=== PATIENT | male | born 1970 | race Caucasian/White ===

== ENCOUNTER 2019-04-09 09:38 | Emergency (ER) | payer OTHER | END 2019-04-09 11:34 | disposition home or self-care (01) | LOC: JERFT 09:38 ==

== ENCOUNTER 2021-06-26 14:10 | Emergency (ER) | payer OTHER ==
[2021-06-26] MEDS ORDERED: NAPROXEN 500 MG TABLET PO ONE (14:47)
[2021-06-26] MEDS ORDERED: NAPROXEN 500 MG TABLET ONE (15:25)
[2021-06-26 15:43] VITALS: BP 130/86; PULSE 58; TEMP 97.9; BMI 29.8
== END 2021-06-26 16:09 | disposition home or self-care (01) ==
LOC: FER 14:10
DX: M25.551 Pain in right hip (principal); M25.561 Pain in right knee; M25.571 Pain in right ankle and joints of right foot
CPT/HCPCS: 73523-TC-FY; 73562-TC-RT-FY; 73610-TC-RT-FY; 73630-TC-RT-FY; 99284-25

== ENCOUNTER 2022-09-26 11:46 | Emergency (ER) | payer OTHER ==
[2022-09-26 11:55] VITALS: BP 137/87; PULSE 55; RESP 18; TEMP 98.6; BMI 29.5
[2022-09-26] MEDS ORDERED: KETOROLAC TROMETHAMINE 30 MG/1 ML VIAL IM ONE (12:38)
[2022-09-26] MEDS ORDERED: LIDOCAINE 5% TOPICAL PATCH TP ONE ×2 (12:40→12:41)
[2022-09-26] MEDS ORDERED: ACETAMINOPHEN 500 MG TABLET (FP) PO ONE (12:40)
[2022-09-26] MEDS ORDERED: ACETAMINOPHEN 500 MG TABLET (FP) ONE (12:47)
[2022-09-26] MEDS ORDERED: KETOROLAC TROMETHAMINE 30 MG/1 ML VIAL ONE (12:47)
[2022-09-26] MEDS ORDERED: LIDOCAINE 5% TOPICAL PATCH ONE (12:48)
[2022-09-26] MEDS ORDERED: LIDOCAINE PATCH REMOVAL MC SCH ×2 (22:00)
== END 2022-09-26 14:30 | disposition home or self-care (01) ==
LOC: FER 11:46
PROC: 3E0233Z Introduction of Anti-inflammatory into Muscle, Percutaneous Approach (ICD-10-PCS; principal; 2022-09-26)
DX: M54.50 Low back pain, unspecified (principal)
CPT/HCPCS: 72131-TC; 99284-25